=== PATIENT | male | born 1970 | race African-American/Black ===

== ENCOUNTER → 2017-07-16 09:05 | Emergency (ER) | payer SELFPAY ==
[2017-07-16 09:12] VITALS: BP 143/84
--- NOTE | 2017-07-16 09:50 | ED ---
Upper Extremity Pain - HPI Summary HPI Summary: Rt hand dominant pt here w/ Rt wrist pain s/p FOOSH - slipped while walking down the driveway this morning and landed on Rt wrist and bottom - no pain/sx in bottom or legs. Pain along radial aspect of Rt wrist- mild swelling. Pain worse w/ movements of thumb. Denies numbness, tingling, weakness. No previous injuries here. Denies pain in forearm, elbow, shoulder, neck and did not strike head. Took motrin prior to arrival - helps. Does not want ice. - History of Current Complaint Chief Complaint: EDExtremityUpper Stated Complaint: FALL/RT WRIST INJURY Time Seen by Provider: 07/16/17 09:14 Hx Obtained From: Patient - Allergies/Home Medications Allergies/Adverse Reactions: Allergies Allergy/AdvReac Type Severity Reaction Status Date / Time No Known Allergies Allergy Verified 07/16/17 09:12 PMH/Surg Hx/FS Hx/Imm Hx Previously Healthy: Yes Endocrine/Hematology History: Denies: Hx Anticoagulant Therapy, Hx Blood Disorders Cardiovascular History: Reports: Hx Hypertension - amlodipine, losartan Musculoskeletal History: Denies: Hx Arthritis, Hx Orthopedic Injury Infectious Disease History: No Infectious Disease History: Denies: Traveled Outside the [place] in Last 30 Days - Family History Known Family History: Positive: Hypertension - Social History Occupation: Employed Full-time - physician [employer] Lives: With Family Alcohol Use: Occasionally Hx Substance Use: No Substance Use Type: Reports: None Hx Tobacco Use: No Smoking Status (MU): Never Smoked Tobacco Review of Systems Constitutional: Negative Negative: Fatigue Eyes: Negative Negative: Photophobia, Blurred Vision, Diplopia Cardiovascular: Negative Negative: Chest Pain Respiratory: Negative Negative: Shortness Of Breath Gastrointestinal: Negative Negative: Vomiting, Nausea Positive: no symptoms reported Positive: Arthralgia - see HPI Skin: Negative Neurological: Negative Psychological: Normal All Other Systems Reviewed And Are Negative: Yes Physical Exam Triage Information Reviewed: Yes Vital Signs On Initial Exam: Initial Vitals Temp Pulse Resp BP Pulse Ox 96.9 F 62 16 143/84 99 07/16/17 09:08 07/16/17 09:08 07/16/17 09:08 07/16/17 09:08 07/16/17 09:08 Vital Signs Reviewed: Yes Appearance: Positive: Well-Appearing, No Pain Distress, Well-Nourished Skin: Positive: Warm, Dry - no erythema, no ecchymosis over affected area Head/Face: Positive: Normal Head/Face Inspection Eyes: Positive: EOMI ENT: Positive: Hearing grossly normal Respiratory/Lung Sounds: Positive: Breath Sounds Present Cardiovascular: Positive: Pulses are Symmetrical in both Upper and Lower Extremities Musculoskeletal: Positive: Strength/ROM Intact, Pain @ - anatomical snuff box w / TTP; pain w/ all resisted thumb movements - no laxity appreciated, Other - FROM phalanges, wrist, elbow, shoulder, cervical spine; only pain is w/ thumb movements of these joints Neurological: Positive: Normal, Sensory/Motor Intact, Alert, Oriented to Person Place, Time, CN Intact II-III Psychiatric: Positive: Normal - [place] Coma Scale Coma Scale Total: 15 Procedures - Splinting Location: Rt UE Pre-Made Type: velcro Splint: thumb spica Pre-Proc Neuro Vasc Exam: normal Post-Proc Neuro Vasc Exam: normal Diagnostics - Vital Signs Vital Signs Temp Pulse Resp BP Pulse Ox 07/16/17 09:08 96.9 F 62 16 143/84 99 - Laboratory Diagnostic Studies Comment: Rt wrist XR: nondisplaced fx as in report - image reviewed - agree Lab Statement: Any lab studies that have been ordered have been reviewed, and results considered in the medical decision making process. Course/Dx - Course Course Of Treatment: Reviewed w/ Dr. Dragan bartholomew for thumb spica prefab splint. Reviewed care w/ pt who agrees to f/u w/ ortho this week. Reviewed danger s/sx of when to return to ED. - Diagnoses Provider Diagnoses: Closed fracture of right distal radius Discharge - Discharge Plan Condition: Stable Disposition: HOME Patient Education Materials: Wrist Fracture in Adults (ED), Splint Care (ED) Forms: *Work Release Referrals: Edvin Maldonado MD [Medical Doctor] - Additional Instructions: Rest, ice, elevate Keep splint clean and dry until seen by orthopedics Take ibuprofen with food as needed for pain Follow-up with orthopedics - call today to schedule an appointment *If you develop numbness, tingling, weakness, you may gently loosen JENNIFER wrap and elevate arm for 20 minutes - if this does not improve symptoms, return to ED
--- NOTE | 2017-07-16 10:14 | RAD ---
INDICATION: Pain and swelling at the right wrist after a fall COMPARISON: None. TECHNIQUE: 3 views right wrist. REPORT: On the oblique view of the wrist there is a faint medullary line oriented horizontally abutting the lateral cortex of the distal radius. On the lateral view there is a minimally displaced fracture extending from the distal articulating surface of the dorsal radius to the dorsal surface of the distal radius. The remaining visualized bones are intact and appropriately aligned. IMPRESSION: Nondisplaced fracture involving the lateral and distal corner of the distal right radius.
== END | disposition home or self-care (01) ==
LOC: ED 09:05
DX: S52.501A Unspecified fracture of the lower end of right radius, initial encounter for closed fracture (principal); W01.0XXA Fall on same level from slipping, tripping and stumbling without subsequent striking against object, initial encounter; Y93.01 Activity, walking, marching and hiking; Y92.412 Parkway as the place of occurrence of the external cause; I10 Essential (primary) hypertension
CPT/HCPCS: 99282